=== PATIENT | male | born 1990 | race Caucasian/White ===

== ENCOUNTER 2020-01-03 19:43 | Emergency (ER) | payer OTHER ==
[~2020-01-03] VITALS: Ht 180.3 cm; Wt 89.8 kg
[2020-01-03 19:45] VITALS: Ht 180.3 cm; Wt 89.8 kg
[2020-01-03 20:30] LABS: BASOPHIL % 0.1 % (0-2); PLATELET COUNT 277 x10^3mcL (130-400); RED CELL DISTRIBUTION WIDTH 12.7 % (11.5-14.5)
[2020-01-03 20:40] LABS: CALCIUM 10.3 mg/dL (8.5-10.1); CARBON DIOXIDE 22.8 mmol/L (21-32); CHLORIDE SERUM 99 mmol/L (98-107); CREATININE SERUM 1.2 mg/dL (0.7-1.3); GFR1 > 60 mL/min; GLUCOSE SERUM 131 mg/dL (74-106); POTASSIUM SERUM 3.4 mmol/L (3.5-5.1); SODIUM SERUM 140 mmol/L (136-145)
[2020-01-03 20:50] LABS: UA SPECIFIC GRAVITY >=1.030 (1.005-1.035); microscopic required? YES; urine erythrocyte NEGATIVE (NEGATIVE)
[2020-01-03 20:56] LABS: ALBUMIN 4.9 g/dL (3.4-5.0); ALKALINE PHOSPHATASE 80 U/L (46-116); ALT/SGPT 25 U/L (16-63); AST/SGOT 17 U/L (15-37); LIPASE 65 IU/L (73-393)
[2020-01-03 20:57] LABS: TOTAL PROTEIN, SERUM 8.6 g/dL (6.4-8.2)
[2020-01-03 23:13] VITALS: BP 149/85
== END 2020-01-03 23:13 | disposition home or self-care (01) ==
LOC: ED 19:43
PROVIDERS: Emergency Medicine
DX: K29.00 Acute gastritis without bleeding (principal); D72.829 Elevated white blood cell count, unspecified; F12.988 Cannabis use, unspecified with other cannabis-induced disorder; F17.210 Nicotine dependence, cigarettes, uncomplicated; Z71.6 Tobacco abuse counseling
CPT/HCPCS: 99406; J2060; J2405; J3490; J7030

== ENCOUNTER 2020-01-04 18:42 | Emergency (ER) | payer OTHER ==
[~2020-01-04] VITALS: Ht 180.3 cm; Wt 87.5 kg
[2020-01-04 18:52] VITALS: BP 146/95; Ht 180.3 cm; Wt 87.5 kg
== END 2020-01-04 20:19 | disposition left against medical advice (07) ==
LOC: ED 18:42
DX: Z53.21 Procedure and treatment not carried out due to patient leaving prior to being seen by health care provider (principal)

== ENCOUNTER 2020-01-07 18:02 | Emergency (ER) | payer OTHER ==
[~2020-01-07] VITALS: Ht 180.3 cm; Wt 86.2 kg
[2020-01-07 18:15] VITALS: Ht 180.3 cm; Wt 86.2 kg
[2020-01-07 19:36] LABS: UA SPECIFIC GRAVITY >=1.030 (1.005-1.035); microscopic required? YES; urine erythrocyte NEGATIVE (NEGATIVE)
[2020-01-07 19:39] LABS: BASOPHIL % 0.2 % (0-2); PLATELET COUNT 263 x10^3mcL (130-400); RED CELL DISTRIBUTION WIDTH 11.8 % (11.5-14.5)
[2020-01-07 19:47] LABS: CALCIUM 9.7 mg/dL (8.5-10.1); CARBON DIOXIDE 26.8 mmol/L (21-32); CHLORIDE SERUM 97 mmol/L (98-107); GFR1 > 60 mL/min; GLUCOSE SERUM 107 mg/dL (74-106); POTASSIUM SERUM 3.3 mmol/L (3.5-5.1); SODIUM SERUM 136 mmol/L (136-145)
[2020-01-07 19:52] LABS: ALBUMIN 4.3 g/dL (3.4-5.0); ALKALINE PHOSPHATASE 77 U/L (46-116); ALT/SGPT 102 U/L (16-63); AST/SGOT 42 U/L (15-37); BILIRUBIN TOTAL 1.84 mg/dL (0.20-1.00); LIPASE 94 IU/L (73-393); TOTAL PROTEIN, SERUM 7.6 g/dL (6.4-8.2)
[2020-01-07 19:53] LABS: AMPHETAMINE QUAL UR NONE DETECTED (See below)
[2020-01-07 21:02] VITALS: BP 151/91
== END 2020-01-07 21:45 | disposition home or self-care (01) ==
LOC: ED 18:02
PROVIDERS: Emergency Medicine
DX: F12.288 Cannabis dependence with other cannabis-induced disorder (principal); F17.200 Nicotine dependence, unspecified, uncomplicated; R10.13 Epigastric pain; R11.10 Vomiting, unspecified
CPT/HCPCS: 99406; J1630; J2060; J7030; Q0092

== ENCOUNTER 2020-05-02 14:21 | Emergency (ER) | payer OTHER ==
[~2020-05-02] VITALS: Ht 154.9 cm; Wt 88.5 kg
[2020-05-02 14:51] VITALS: Ht 154.9 cm; Wt 88.5 kg
[2020-05-02 17:09] LABS: BASOPHIL % 0.7 % (0-2); PLATELET COUNT 275 x10^3mcL (130-400); RED CELL DISTRIBUTION WIDTH 12.3 % (11.5-14.5)
[2020-05-02 17:10] LABS: CALCIUM 9.8 mg/dL (8.5-10.1); CARBON DIOXIDE 26.7 mmol/L (21-32); CHLORIDE SERUM 101 mmol/L (98-107); GFR1 > 60 mL/min; GLUCOSE SERUM 102 mg/dL (74-106); POTASSIUM SERUM 3.6 mmol/L (3.5-5.1); SODIUM SERUM 140 mmol/L (136-145)
[2020-05-02 17:14] LABS: ALBUMIN 4.6 g/dL (3.4-5.0); ALKALINE PHOSPHATASE 85 U/L (46-116); ALT/SGPT 34 U/L (16-63); AMYLASE 48 U/L (25-115); AST/SGOT 19 U/L (15-37); BILIRUBIN TOTAL 0.9 mg/dL (0.20-1.00); LIPASE 100 IU/L (73-393); TOTAL PROTEIN, SERUM 8.3 g/dL (6.4-8.2)
[2020-05-02 18:28] VITALS: BP 139/62
== END 2020-05-02 18:28 | disposition home or self-care (01) ==
LOC: ED 14:21
PROVIDERS: Emergency Medicine
DX: F12.288 Cannabis dependence with other cannabis-induced disorder (principal); Z90.49 Acquired absence of other specified parts of digestive tract
CPT/HCPCS: J1630; J1885; J2405; J7030